=== PATIENT | male | born 1995 | race Caucasian/White ===

== ENCOUNTER 2024-03-30 12:47 | Emergency (ER) | payer OTHER ==
[~2024-03-30] VITALS: Ht 182.9 cm; Wt 88.5 kg
[2024-03-30] VITALS (7 sets, daily range): BP systolic 98–151; BP diastolic 60–88
[~2024-03-30 12:47] MED LIST: LORTAB 7.57.5 MG PO; PERCOCET 5/325M1 TAB OR
[2024-03-30] MEDS ORDERED: METHOCARBAMOL 500 MG/TAB PO ONE (13:05)
[2024-03-30] MEDS ORDERED: NAPROXEN 250 MG/TAB PO ONE (13:05)
[2024-03-30] MEDS ORDERED: NAPROXEN500 MG PO (14:26)
[2024-03-30] MEDS ORDERED: METHOCARBAMOL500 MG PO (14:26)
== END 2024-03-30 14:48 | disposition home or self-care (01) | DRG 552 ==
LOC: ED 12:47
DX: S16.1XXA Strain of muscle, fascia and tendon at neck level, initial encounter (principal); M25.512 Pain in left shoulder; W18.39XA Other fall on same level, initial encounter; Y93.89 Activity, other specified; Y99.0 Civilian activity done for income or pay